=== PATIENT | female | born 1960 | race Caucasian/White ===

== ENCOUNTER 2022-04-05 09:32 | Emergency (ER) | payer OTHER ==
[~2022-04-05] VITALS: Ht 167.6 cm; Wt 70.3 kg
[2022-04-05] MEDS ORDERED: ONDANSETRON HCL INJ 2MG/ML 2ML 2 MG/ML VIAL IV STA (10:17)
[2022-04-05 10:20] LABS: BASOPHILS % 0.4 % (0.0-1.0); EOSINOPHILS # (AUTO) 0.1 (0.0-0.4); EOSINOPHILS % 0.9 % (0.0-6.0); HEMOGLOBIN 11.7 g/dL (12.0-16.0); LYMPHOCYTES # (AUTO) 2.2 (1.0-3.2); LYMPHOCYTES % 21.6 % (18.0-39.1); MEAN CORPUSCULAR HEMOGLOBIN 28.5 pg (28-32); MEAN CORPUSCULAR HGB CONC 31.6 g/dL (31-35); MEAN CORPUSCULAR VOLUME 90.2 fL (81-99); MONOCYTES # (AUTO) 0.6 (0.2-0.8); NEUTROPHILS # (AUTO) 7.2 (2.1-6.9); NEUTROPHILS % 70.8 % (38.7-80.0); PLATELET COUNT 301 x10e3/uL (140-360); RED CELL DISTRIBUTION WIDTH 12.7 % (11.7-14.4)
[2022-04-05] MEDS ORDERED: DEXAMETHASONE SOD PHOS 10 MG/1 ML VIAL IV ONE (10:30)
[2022-04-05] MEDS ORDERED: HYDROCODONE/APAP 7.5MG-325MG 1 EA TAB PO ONE (10:30)
[2022-04-05 10:38] LABS: ALANINE AMINOTRANSFERASE 6 IU/L (0-55); ALBUMIN 3.9 g/dL (3.5-5.0); ALBUMIN/GLOBULIN RATIO 1.2 (0.8-2.0); ALKALINE PHOSPHATASE 84 IU/L (40-150); ANION GAP 15.6 mmol/L (8-16); BLOOD UREA NITROGEN 10 mg/dL (7-26); BUN/CREATININE RATIO 14 (6-25); CARBON DIOXIDE 26 mmol/L (22-29); CHLORIDE 101 mmol/L (98-107); CREATINE KINASE 48 IU/L (29-168); CREATININE, SERUM 0.73 mg/dL (0.57-1.11); GLUCOSE 149 mg/dL (74-118); POTASSIUM 3.6 mmol/L (3.5-5.1); SODIUM 139 mmol/L (136-145)
[2022-04-05 11:02] LABS: MAGNESIUM 1.5 MG/DL (1.3-2.1)
[2022-04-05] MEDS ORDERED: SODIUM CHLORIDE 0.9% 250ML 250 ML ONE (11:17)
[2022-04-05 11:42] LABS: THYROID STIMULATING HORMONE 0.101 uIU/mL (0.350-4.940)
[2022-04-05] MEDS ORDERED: HYDROCODON-ACE1 EA11 PO (13:03)
[2022-04-05] MEDS ORDERED: PREDNISONE20 MG PO (13:03)
== END 2022-04-05 13:26 | disposition home or self-care (01) ==
LOC: ER 09:39
DX: M25.512 Pain in left shoulder (principal); M75.52 Bursitis of left shoulder; M77.8 Other enthesopathies, not elsewhere classified; E11.65 Type 2 diabetes mellitus with hyperglycemia; E78.5 Hyperlipidemia, unspecified; E03.9 Hypothyroidism, unspecified
CPT/HCPCS: 36415; 71045; 72125; 80053; 82550; 82553; 83735; 84443; 84484; 85025; 93005; 99284; J1100; J2405; J7050

== ENCOUNTER 2024-01-31 18:09 | Inpatient (IN) | payer OTHER ==
[~2024-01-31] VITALS: Ht 154.9 cm; Wt 68.0 kg
[~2024-01-31 18:09] MED LIST: CALCITRIOL0.5 MCG PO; CALCIUM + VITA1 EACH; CRESTOR10 MG PO; HYDROCODON-ACE1 EA11 PO; LEVOTHYROXINE75 MCG PO; MAGOX 400400 MG PO; PANTOPRAZOLE SO40 MG PO; PREDNISONE20 MG PO; PROZAC40 MG PO
[2024-01-31 18:19] VITALS: TEMP 98.3
[2024-01-31 18:42] LABS: BASOPHILS # (AUTO) 0.1 (0.0-0.1); EOSINOPHILS # (AUTO) 0.3 (0.0-0.4); EOSINOPHILS % 3.6 % (0.0-6.0); HEMATOCRIT 35.2 % (34.2-44.1); HEMOGLOBIN 11.1 g/dL (12.0-16.0); LYMPHOCYTES # (AUTO) 2.4 (1.0-3.2); LYMPHOCYTES % 33.7 % (18.0-39.1); MEAN CORPUSCULAR HEMOGLOBIN 28.8 pg (28-32); MEAN CORPUSCULAR HGB CONC 31.5 g/dL (31-35); MEAN CORPUSCULAR VOLUME 91.4 fL (81-99); MONOCYTES # (AUTO) 0.5 (0.2-0.8); MONOCYTES % 7.4 % (4.4-11.3); NEUTROPHILS # (AUTO) 3.8 (2.1-6.9); NEUTROPHILS % 54.2 % (38.7-80.0); PLATELET COUNT 313 x10e3/uL (140-360); RED BLOOD COUNT 3.85 x10e6/uL (3.6-5.1); RED CELL DISTRIBUTION WIDTH 12.8 % (11.7-14.4); WHITE BLOOD COUNT 7.03 x10e3/uL (4.8-10.8)
[2024-01-31 19:00] LABS: ALBUMIN 3.9 g/dL (3.5-5.0); ALBUMIN/GLOBULIN RATIO 1.1 (0.8-2.0); ALKALINE PHOSPHATASE 86 IU/L (40-150); ANION GAP 13.6 mmol/L (8-16); BILIRUBIN,TOTAL 0.6 mg/dL (0.2-1.2); BLOOD UREA NITROGEN 17 mg/dL (7-26); BUN/CREATININE RATIO 13 (6-25); CARBON DIOXIDE 30 mmol/L (22-29); CHLORIDE 98 mmol/L (98-107); CREATINE KINASE 47 IU/L (29-168); CREATININE, SERUM 1.36 mg/dL (0.57-1.11); EST GLOMERULAR FILTRATION RATE 43 ML/MIN (>=60); GLUCOSE 169 mg/dL (74-118); POTASSIUM 3.6 mmol/L (3.5-5.1); SODIUM 138 mmol/L (136-145); TOTAL PROTEIN 7.3 g/dL (6.5-8.1)
[2024-01-31 19:01] LABS: ALANINE AMINOTRANSFERASE < 6 IU/L (0-55); CALCIUM 14.5 mg/dL (8.4-10.2)
[2024-01-31 19:06] LABS: TROPONIN I < 0.001 ng/mL (0-0.300)
[2024-01-31] MEDS: SODIUM CHLORIDE 0.9% 1000ML 1,000 ML IV SCH (19:34)
[2024-01-31 20:19] VITALS: PULSE 62; RESP 16; O2SAT 99
[2024-01-31 20:30] VITALS: PULSE 60; RESP 18
[2024-01-31 21:00] VITALS: BP 166/56; PULSE 57; RESP 17; TEMP 97.7; O2SAT 99
[2024-02-01] VITALS (9 sets, daily range): BP systolic 132–159; BP diastolic 55–72; PULSE 56–68; RESP 14–18; TEMP 97.9–98.3; O2SAT 96–100
[2024-02-01 06:46] LABS: BASOPHILS # (AUTO) 0.1 (0.0-0.1); EOSINOPHILS # (AUTO) 0.3 (0.0-0.4); EOSINOPHILS % 4.5 % (0.0-6.0); HEMATOCRIT 31.2 % (34.2-44.1); LYMPHOCYTES # (AUTO) 2.6 (1.0-3.2); LYMPHOCYTES % 36.7 % (18.0-39.1); MEAN CORPUSCULAR HEMOGLOBIN 29.2 pg (28-32); MEAN CORPUSCULAR HGB CONC 32.1 g/dL (31-35); MONOCYTES # (AUTO) 0.7 (0.2-0.8); MONOCYTES % 9.6 % (4.4-11.3); NEUTROPHILS # (AUTO) 3.4 (2.1-6.9); NEUTROPHILS % 47.9 % (38.7-80.0); PLATELET COUNT 268 x10e3/uL (140-360); RED BLOOD COUNT 3.43 x10e6/uL (3.6-5.1); RED CELL DISTRIBUTION WIDTH 12.8 % (11.7-14.4); WHITE BLOOD COUNT 7.09 x10e3/uL (4.8-10.8)
[2024-02-01 07:03] LABS: ALBUMIN 3.3 g/dL (3.5-5.0); ALBUMIN/GLOBULIN RATIO 1.2 (0.8-2.0); ALKALINE PHOSPHATASE 67 IU/L (40-150); ANION GAP 8.4 mmol/L (8-16); BILIRUBIN,TOTAL 0.5 mg/dL (0.2-1.2); BLOOD UREA NITROGEN 18 mg/dL (7-26); BUN/CREATININE RATIO 18 (6-25); CALCIUM 11.9 mg/dL (8.4-10.2); CARBON DIOXIDE 33 mmol/L (22-29); CHLORIDE 103 mmol/L (98-107); CREATININE, SERUM 0.98 mg/dL (0.57-1.11); EST GLOMERULAR FILTRATION RATE 64 ML/MIN (>=60); GLUCOSE 107 mg/dL (74-118); SODIUM 141 mmol/L (136-145); TOTAL PROTEIN 6.1 g/dL (6.5-8.1)
[2024-02-01 07:04] LABS: ALANINE AMINOTRANSFERASE < 6 IU/L (0-55); POTASSIUM 3.4 mmol/L (3.5-5.1)
[2024-02-01 07:09] LABS: TROPONIN I 0.006 ng/mL (0-0.300)
[2024-02-01] MEDS ORDERED: HYDRALAZINE HCL 25 MG TAB PO PRN (11:30)
[2024-02-01] MEDS: FUROSEMIDE INJ 10 MG/ML 2 ML VIAL IV ONE (16:48)
[2024-02-01] MEDS: FLUOXETINE HCL 20 MG CAP PO SCH (16:48)
[2024-02-01] MEDS ORDERED: FUROSEMIDE INJ 10 MG/ML 2 ML VIAL ONE (16:50)
[2024-02-01 18:03] LABS: CREATINE KINASE 37 IU/L (29-168)
[2024-02-01 18:11] LABS: TROPONIN I < 0.001 ng/mL (0-0.300)
[2024-02-01 18:20] LABS: FREE T4 (FREE THYROXINE) 1.11 ng/dL (0.8-1.8); THYROID STIMULATING HORMONE 1.273 uIU/mL (0.350-4.940)
[2024-02-01] MEDS: SIMVASTATIN 20 MG TAB PO SCH (20:31)
[2024-02-02] VITALS (9 sets, daily range): BP systolic 131–154; BP diastolic 57–83; PULSE 60–69; RESP 17–19; TEMP 97.9–98.5; O2SAT 97–100
[2024-02-02] MEDS: LEVOTHYROXINE SODIUM 75 MCG TAB PO SCH (05:38)
[2024-02-02 06:33] LABS: CALCIUM 11.3 mg/dL (8.4-10.2); CREATININE, SERUM 0.8 mg/dL (0.57-1.11)
[2024-02-02 07:13] LABS: CREATINE KINASE 30 IU/L (29-168)
[2024-02-02 07:22] LABS: TROPONIN I < 0.001 ng/mL (0-0.300)
[2024-02-02 07:32] LABS: MAGNESIUM 1.4 MG/DL (1.3-2.1); PHOSPHORUS 2.9 MG/DL (2.3-4.7)
[2024-02-02 07:52] LABS: THYROID STIMULATING HORMONE 1.587 uIU/mL (0.350-4.940)
[2024-02-02] MEDS: PANTOPRAZOLE SOD 40 MG TABEC PO SCH (09:43)
[2024-02-02] MEDS: MAGNESIUM OXIDE 400 MG TAB PO SCH (09:43)
[2024-02-02 10:38] LABS: POTASSIUM 3.1 mmol/L (3.5-5.1)
[2024-02-02] MEDS ORDERED: MAGNESIUM SULFATE 2GM/50ML IV ONE (12:15)
[2024-02-02 12:32] LABS: ANION GAP 16.1 mmol/L (8-16)
[2024-02-02] MEDS: MAGNESIUM SULFATE 2GM/50ML 50 ML IV ONE (12:47)
[2024-02-02] MEDS: POTASSIUM PHOSPHATE 20 MM in SODIUM CHLORIDE 0.9% 250ML 250 ML IV ONE (14:50)
[2024-02-02] MEDS: FUROSEMIDE INJ 10 MG/ML 2 ML VIAL IV ONE (16:31)
[2024-02-03 00:48] VITALS: BP 130/56; PULSE 66; RESP 18; TEMP 98; O2SAT 100
[2024-02-03 04:00] VITALS: BP 130/58; PULSE 68; RESP 17; TEMP 98.3; O2SAT 100
[2024-02-03 06:51] LABS: MAGNESIUM 1.7 MG/DL (1.3-2.1); PHOSPHORUS 3.8 MG/DL (2.3-4.7)
[2024-02-03 08:40] VITALS: BP 149/60; PULSE 59; RESP 19; TEMP 97.8; O2SAT 100
[2024-02-03 08:57] VITALS: BP 149/60; PULSE 59; RESP 19; TEMP 97.8
[2024-02-03] MEDS: FLUOXETINE HCL 20 MG CAP PO SCH (09:27)
[2024-02-03] MEDS: FUROSEMIDE INJ 10 MG/ML 2 ML VIAL IV ONE (09:28)
[2024-02-03 09:56] LABS: ANION GAP 13.5 mmol/L (8-16); CALCIUM 8.4 mg/dL (8.4-10.2); CREATININE, SERUM 0.83 mg/dL (0.57-1.11); POTASSIUM 3.5 mmol/L (3.5-5.1)
[2024-02-03] MEDS: FUROSEMIDE INJ 10 MG/ML 2 ML VIAL ONE (10:15)
== END 2024-02-03 11:31 | disposition home or self-care (01) | DRG 641 ==
LOC: ER 18:20 → ERHOLD 19:06 → MED/SURG3 20:54
PROVIDERS: ADMIT Internal Medicine; ATTEND Internal Medicine
DX: E83.52 Hypercalcemia (principal); E87.8 Other disorders of electrolyte and fluid balance, not elsewhere classified; E03.9 Hypothyroidism, unspecified; E11.65 Type 2 diabetes mellitus with hyperglycemia; E86.0 Dehydration; I10 Essential (primary) hypertension; E78.5 Hyperlipidemia, unspecified; N28.9 Disorder of kidney and ureter, unspecified; F32.9 Major depressive disorder, single episode, unspecified; F41.9 Anxiety disorder, unspecified; M19.90 Unspecified osteoarthritis, unspecified site; Z11.52 Encounter for screening for COVID-19; Z79.890 Hormone replacement therapy
CPT/HCPCS: 36415; 71045; 80048; 80053; 82550; 82948; 83036; 83690; 83735; 83880; 83970; 84100; 84439; 84443; 84484; 85025; 93005; 94799; 99284; J1940; J3475; J7030; J7050; U0002